=== PATIENT | female | born 1990 | race Two or more races ===

== ENCOUNTER 2018-11-14 16:37 | Emergency (ER) | payer BC ==
[~2018-11-14 16:37] MED LIST: ISOVUE-370 76%-LOCM 1 ML ONE
[2018-11-14 17:16] LABS: Pregnancy Test - Urine (BHCG) Negative (Negative); Pregu Control Background? CLEAR/WHITE (CLR/WHITE); Pregu Control Bar Appear? YES (CONTROL BAR)
[2018-11-14 17:27] LABS: #Eosinphils 0.1 thou/uL (0.0-0.7); #Lymphocytes 1.6 thou/uL (1.20-3.40); #Monocytes 0.3 thou/uL (0.11-0.59); #Neutrophils 3.7 thou/uL (1.40-6.50); %Basophils 0.8 % (0.0-1.0); %Eosinophils 1.3 % (0.0-10.0); %Lymphocytes 28.1 % (21.0-51.0); %Monocytes 5.8 % (0.0-10.0); Hemoglobin 13.1 g/dL (12.0-16.0); Mean Corpuscular Hemoglobin 27.7 pg (27.0-31.0); Mean Corpuscular Volume 86.8 fL (78.0-98.0); Mean Platelet Volume 7.5 fL (7.4-10.4); Platelet Count 292 thou/uL (130-400); Red Blood Cell (RBC) Count 4.71 mill/uL (4.20-5.40); White Blood Cell (WBC) Count 5.7 thou/uL (4.8-10.8)
[2018-11-14 17:45] LABS: ALT (SGPT) 11 U/L (8-55); AST (SGOT) 15 U/L (5-34); Albumin 4.6 g/dL (3.5-5.0); Alkaline Phosphatase 74 U/L (40-150); Anion Gap 12 mmol/L (10-20); BUN (Urea Nitrogen) 8 mg/dL (7.0-18.7); Bilirubin, Total 0.2 mg/dL (0.2-1.2); Calc. Creatinine Clearance 0 mL/min (70-130); Calcium 9.7 mg/dL (7.8-10.44); Carbon Dioxide 25 mmol/L (22-29); Chloride 105 mmol/L (98-107); Estimated GFR-MDRD Greater than 90; Globulin 3.2 g/dL (2.4-3.5); Glucose 97 mg/dL (70-105); Lipase 25 U/L (8-78); Protein, Total 7.8 g/dL (6.0-8.3); Sodium 138 mmol/L (136-145)
[2018-11-14 17:49] LABS: Bilirubin Negative (Negative); Blood, Urine Negative (Negative); Clarity CLEAR (Clear); Glucose, Urine (Dipstick) Negative (Negative); Leukocyte Negative (Negative); Nitrite Negative (Negative); Protein, Urine (Dipstick) Negative (Neg-Trace); Specific Gravity, Urine 1.009 (1.002-1.036); Urobilinogen 0.2 mg/dL (0.2-1.0); pH, Urine 7.5 (5.0-9.0)
--- NOTE | 2018-11-14 18:27 | RAD ---
ABDOMEN TWO VIEW: 11/14/18 HISTORY: Abdominal pain. Nausea and vomiting. COMPARISON: None. FINDINGS: There are no dilated air filled loops of large or small bowel. No free air under the hemidiaphragms o n this upright view. No abnormal calcification projecting over the renal shadows. 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 Small left pelvic phlebolith. IMPRESSION: No evidence for small bowel obstruction. POS: HOME
[2018-11-14] MEDS ORDERED: Ondansetron PF 4 MG/2 ML Vial ONE (20:38)
[2018-11-14] MEDS ORDERED: Morphine 4 MG/ML VIAL ONE (20:38)
[2018-11-14] MEDS ORDERED: Glycopyrrolate 0.2 MG/ML 5 ML SYRINGE SLOW IVP SCH (20:45)
--- NOTE | 2018-11-14 21:35 | CT ---
CT ABDOMEN AND PELVIS WITH CONTRAST 11/14/18 HISTORY: Evaluate for small bowel obstruction. Abdominal pain. Constipation. COMPARISON: None. FINDINGS: Lung bases are clear. No pericardial effusion. The spleen, pancreas, and adrenal glands are normal. Liver is unremarkable. The aortoiliac contour is nonaneurysmal. No retroperitoneal adenopathy. There are no dilated loops of large or small bowel. The appendix is visualized and is normal. No free intraperitoneal gas or fluid. No hydronephrosis. No abnormal renal enhancing mass. No retrope ritoneal adenopathy. No acute osseous abnormality. 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 IMPRESSION: No acute abnormality in the abdomen or pelvis. POS: HOME
[2018-11-14] MEDS ORDERED: diphenhydrAMINE 50 MG/ML VIAL ONE (22:02)
== END 2018-11-14 22:39 | disposition home or self-care (01) ==
LOC: ERS 16:37
DX: R10.9 Unspecified abdominal pain (principal); Z79.899 Other long term (current) drug therapy
CPT/HCPCS: 36415; 74019; 74177; 80053; 81003; 81025; 83690; 85025; 96361; 96374; 96375; J1200; J2270; J2405; Q9966

== ENCOUNTER 2018-11-17 10:26 | Outpatient (CLI) | payer BC ==
--- NOTE | 2018-11-17 12:13 | RAD ---
ABDOMEN 1 VIEW: Date: 11/17/18 HISTORY: Constipation, nausea, and vomiting. Sitz marker study day 1. COMPARISON: None. FINDINGS: Moderate stool burden within the rectum. No radiopaque markers are appreciated on this examination. Moderate stool burden in the colon. IMPRESSION: No radiopaque markers are appreciated. Moderate stool burden. POS: [facility]
== END 2018-11-17 10:27 | disposition home or self-care (01) ==
LOC: BICRAD 10:26
PROVIDERS: ATTEND Physician Assistant Medical
DX: K59.00 Constipation, unspecified (principal); R11.2 Nausea with vomiting, unspecified
CPT/HCPCS: 74018

== ENCOUNTER 2018-11-22 13:23 | Outpatient (CLI) | payer BC ==
--- NOTE | 2018-11-22 14:19 | RAD ---
KUB: Date: 11-22-18 Provided Clinical History: Constipation. Sitz cora study. FINDINGS: Correlation is made with the study dated 11-17-18. The abdominal bowel gas pattern is nonspecific. 20 Sitz markers remain scattered throughout the expec janis distribution of the colon. The ossoues structures appear unremarkable. IMPRESSION: 20 Sitz markers remain. POS: [facility]
== END 2018-11-22 13:24 | disposition home or self-care (01) ==
LOC: BICRAD 13:23
PROVIDERS: ATTEND Internal Medicine Gastroenterology
DX: K59.00 Constipation, unspecified (principal); R11.2 Nausea with vomiting, unspecified
CPT/HCPCS: 74018

== ENCOUNTER 2018-11-29 10:31 | Outpatient (CLI) | payer BC ==
--- NOTE | 2018-11-29 11:33 | RAD ---
SUPINE ABDOMEN: Indications: Sitz marker transit study. Comparison: 11-22-18 FINDINGS/IMPRESSION: Three sitz markers overlie the region of the cecum. One sitz marker is seen at the level of the hepat ic flexure. The other sitz markers are distributed throughout the left colon from the splenic flexure to the level of the mid sigmoid. POS: [facility]
== END 2018-11-29 10:32 | disposition home or self-care (01) ==
LOC: BICRAD 10:31
PROVIDERS: ATTEND Internal Medicine Gastroenterology
DX: K59.01 Slow transit constipation (principal); R11.2 Nausea with vomiting, unspecified
CPT/HCPCS: 74018

== ENCOUNTER 2022-04-03 18:42 | Emergency (ER) | payer BC ==
[~2022-04-03 18:42] MED LIST changes: -ISOVUE-370 76%-LOCM 1 ML ONE; +Iopamidol-370 76% 500 ML 1 ML ONE
[2022-04-03] MEDS ORDERED: Fentanyl 100 MCG/2 ML VIAL ONE (18:53)
[2022-04-03] MEDS ORDERED: Ondansetron PF 4 MG/2 ML Vial ONE (19:06)
[2022-04-03 19:17] LABS: #Lymphocytes 0.8 thou/uL (1.20-3.40); #Monocytes 0.6 thou/uL (0.11-0.59); #Neutrophils 14.4 thou/uL (1.40-6.50); %Monocytes 3.5 % (0.0-10.0); %Neutrophils 91.4 % (42.0-75.0); Hemoglobin 9.2 g/dL (12.0-16.0); Mean Corpuscular HGB CONC 31.6 g/dL (32.0-36.0); Mean Corpuscular Hemoglobin 25.5 pg (27.0-31.0); Mean Corpuscular Volume 80.8 fL (78.0-98.0); Mean Platelet Volume 7.8 fL (7.4-10.4); Platelet Count 327 thou/uL (130-400); Red Blood Cell (RBC) Count 3.58 mill/uL (4.20-5.40); White Blood Cell (WBC) Count 15.7 thou/uL (4.8-10.8)
[2022-04-03 19:20] LABS: BHCG - Serum Negative (NEGATIVE); Pregs Control Background? CLEAR/WHITE (CLR/WHITE); Pregs Control Bar Appear? YES (CONTROL BAR)
[2022-04-03 19:37] LABS: ALT (SGPT) 12 U/L (8-55); AST (SGOT) 17 U/L (5-34); Albumin 4.2 g/dL (3.5-5.0); Alkaline Phosphatase 53 U/L (40-110); Anion Gap 14 mmol/L (10-20); BUN (Urea Nitrogen) 8 mg/dL (7.0-18.7); Bilirubin, Total 0.2 mg/dL (0.2-1.2); Calc. Creatinine Clearance 0 mL/min (70-130); Calcium 9.5 mg/dL (7.8-10.44); Carbon Dioxide 22 mmol/L (22-29); Chloride 108 mmol/L (98-107); Estimated GFR 107; Globulin 3.6 g/dL (2.4-3.5); Glucose 99 mg/dL (70-105); Lipase 12 U/L (8-78); Potassium 3.9 mmol/L (3.5-5.1); Protein, Total 7.8 g/dL (6.0-8.3); Sodium 140 mmol/L (136-145)
[2022-04-03 20:07] LABS: Bilirubin Negative (Negative); Blood, Urine Negative (Negative); Clarity Clear (Clear); Glucose, Urine (Dipstick) Normal (Negative); Ketone, Urine Negative (Negative); Leukocyte Negative Leu/uL (Negative); Nitrite Negative (Negative); Protein, Urine (Dipstick) Negative (Neg-Trace); Specific Gravity, Urine 1.008 (1.002-1.036); Urobilinogen Normal mg/dL (Less than 2); pH, Urine 5.5 (5.0-9.0)
[2022-04-03] MEDS ORDERED: Piperacillin/Tazobactam 4.5 GM in Sodium Chloride 0.9% 100 ML IVPB SCH (21:00)
[2022-04-03] MEDS ORDERED: Piperacillin/Tazobactam 4.5 GM VIAL ONE (21:03)
[2022-04-03] MEDS ORDERED: HYDROmorphone 0.5 MG/0.5 ML SYRINGE ONE (22:06)
== END 2022-04-03 23:19 | disposition short-term general hospital (02) ==
LOC: ERS 18:42
DX: T81.44XA Sepsis following a procedure, initial encounter (principal); Z90.49 Acquired absence of other specified parts of digestive tract
CPT/HCPCS: 36415; 74177; 80053; 81003; 83690; 84484; 84703; 85025; 87040; 87086; 93005; 96361; 96365; 96375; 96376; J1170; J2405; J2543; J3010; J3490; Q9967

== ENCOUNTER 2022-04-27 14:52 | Emergency (ER) | payer BC ==
[~2022-04-27 14:52] MED LIST changes: +GASTROGRAFIN 30 ML BOT ONE; +Iopamidol 370 76% 100 ML VIAL ONE; -Iopamidol-370 76% 500 ML 1 ML ONE
[2022-04-27] MEDS ORDERED: Ondansetron PF 4 MG/2 ML Vial ONE ×2 (16:01→18:05)
[2022-04-27] MEDS ORDERED: Fentanyl 100 MCG/2 ML VIAL ONE ×2 (16:01→18:05)
[2022-04-27 16:09] LABS: #Eosinphils 0.3 thou/uL (0.0-0.7); #Lymphocytes 2.5 thou/uL (1.20-3.40); #Monocytes 0.4 thou/uL (0.11-0.59); #Neutrophils 2.4 thou/uL (1.40-6.50); %Basophils 0.1 % (0.0-1.0); %Eosinophils 4.6 % (0.0-10.0); %Lymphocytes 45.2 % (21.0-51.0); %Monocytes 7.1 % (0.0-10.0); Hemoglobin 10.9 g/dL (12.0-16.0); Mean Corpuscular HGB CONC 31.9 g/dL (32.0-36.0); Mean Corpuscular Hemoglobin 24.7 pg (27.0-31.0); Mean Corpuscular Volume 77.4 fL (78.0-98.0); Mean Platelet Volume 8.2 fL (7.4-10.4); Platelet Count 287 thou/uL (130-400); Red Blood Cell (RBC) Count 4.42 mill/uL (4.20-5.40); White Blood Cell (WBC) Count 5.5 thou/uL (4.8-10.8)
[2022-04-27 16:09] LABS: Bilirubin Negative (Negative); Blood, Urine Negative (Negative); Clarity Clear (Clear); Glucose, Urine (Dipstick) Normal (Negative); Ketone, Urine Negative (Negative); Leukocyte Negative Leu/uL (Negative); Nitrite Negative (Negative); Protein, Urine (Dipstick) Negative (Neg-Trace); Specific Gravity, Urine 1.004 (1.002-1.036); Urobilinogen Normal mg/dL (Less than 2); pH, Urine 6.5 (5.0-9.0)
[2022-04-27 16:12] LABS: Pregnancy Test - Urine (BHCG) Negative (Negative); Pregu Control Background? CLEAR/WHITE (CLR/WHITE); Pregu Control Bar Appear? YES (CONTROL BAR); Specific Gravity 1.004 (1.002-1.036)
[2022-04-27 16:35] LABS: ALT (SGPT) 13 U/L (8-55); AST (SGOT) 21 U/L (5-34); Albumin 4.3 g/dL (3.5-5.0); Alkaline Phosphatase 71 U/L (40-110); Anion Gap 14 mmol/L (10-20); BUN (Urea Nitrogen) 10 mg/dL (7.0-18.7); Bilirubin, Total 0.2 mg/dL (0.2-1.2); Calc. Creatinine Clearance 0 mL/min (70-130); Calcium 9.6 mg/dL (7.8-10.44); Carbon Dioxide 22 mmol/L (22-29); Chloride 106 mmol/L (98-107); Estimated GFR 95; Globulin 3.6 g/dL (2.4-3.5); Glucose 90 mg/dL (70-105); Lipase 36 U/L (8-78); Potassium 4.9 mmol/L (3.5-5.1); Protein, Total 7.9 g/dL (6.0-8.3); Sodium 137 mmol/L (136-145)
== END 2022-04-27 18:52 | disposition home or self-care (01) ==
LOC: ERS 14:52
DX: R10.30 Lower abdominal pain, unspecified (principal)
CPT/HCPCS: 36415; 74177; 80053; 81003; 81025; 83690; 85025; 96361; 96374; 96375; 96376; J2405; J3010; Q9963; Q9967

== ENCOUNTER 2022-05-11 16:46 | Inpatient (IN) | payer BC ==
[~2022-05-11 16:46] MED LIST changes: -GASTROGRAFIN 30 ML BOT ONE; -Iopamidol 370 76% 100 ML VIAL ONE; +Iopamidol-370 76% 500 ML 1 ML ONE
[2022-05-11] MEDS ORDERED: Ondansetron PF 4 MG/2 ML Vial ONE (18:10)
[2022-05-11] MEDS ORDERED: HYDROmorphone 0.5 MG/0.5 ML SYRINGE ONE ×2 (18:11→20:14)
[2022-05-11 18:20] LABS: #Eosinphils 0.1 thou/uL (0.0-0.7); #Lymphocytes 2.2 thou/uL (1.20-3.40); #Monocytes 0.4 thou/uL (0.11-0.59); #Neutrophils 3.7 thou/uL (1.40-6.50); %Basophils 0.3 % (0.0-1.0); %Eosinophils 0.8 % (0.0-10.0); %Lymphocytes 34.9 % (21.0-51.0); %Monocytes 5.6 % (0.0-10.0); %Neutrophils 58.4 % (42.0-75.0); Hemoglobin 10.5 g/dL (12.0-16.0); Mean Corpuscular HGB CONC 33.2 g/dL (32.0-36.0); Mean Corpuscular Hemoglobin 25.9 pg (27.0-31.0); Mean Corpuscular Volume 77.9 fL (78.0-98.0); Mean Platelet Volume 8.6 fL (7.4-10.4); Platelet Count 201 thou/uL (130-400); RBC Distribution Width 16.4 % (11.5-14.5); Red Blood Cell (RBC) Count 4.07 mill/uL (4.20-5.40); White Blood Cell (WBC) Count 6.4 thou/uL (4.8-10.8)
[2022-05-11 18:27] LABS: BHCG - Serum Negative (NEGATIVE); Pregs Control Background? CLEAR/WHITE (CLR/WHITE); Pregs Control Bar Appear? YES (CONTROL BAR)
[2022-05-11 18:43] LABS: ALT (SGPT) 13 U/L (8-55); AST (SGOT) 19 U/L (5-34); Albumin 4.5 g/dL (3.5-5.0); Alkaline Phosphatase 55 U/L (40-110); Anion Gap 15 mmol/L (10-20); BUN (Urea Nitrogen) 13 mg/dL (7.0-18.7); Bilirubin, Total 0.3 mg/dL (0.2-1.2); Calc. Creatinine Clearance 0 mL/min (70-130); Carbon Dioxide 22 mmol/L (22-29); Chloride 106 mmol/L (98-107); Estimated GFR 95; Globulin 3.3 g/dL (2.4-3.5); Glucose 86 mg/dL (70-105); Lipase 40 U/L (8-78); Magnesium 2.1 mg/dL (1.6-2.6); Potassium 4.1 mmol/L (3.5-5.1); Protein, Total 7.8 g/dL (6.0-8.3); Sodium 139 mmol/L (136-145)
[2022-05-11 18:55] LABS: Bilirubin Negative (Negative); Blood, Urine Negative (Negative); Clarity Clear (Clear); Glucose, Urine (Dipstick) Normal (Negative); Ketone, Urine Negative (Negative); Leukocyte Negative Leu/uL (Negative); Nitrite Negative (Negative); Protein, Urine (Dipstick) Negative (Neg-Trace); Specific Gravity, Urine 1.011 (1.002-1.036); Urobilinogen Normal mg/dL (Less than 2)
[2022-05-11 18:58] LABS: Pregnancy Test - Urine (BHCG) Negative (Negative); Pregu Control Background? CLEAR/WHITE (CLR/WHITE); Pregu Control Bar Appear? YES (CONTROL BAR); Specific Gravity 1.011 (1.002-1.036)
[2022-05-11 22:54] VITALS: BMI 26.6
[2022-05-11 23:04] LABS: Troponin I Less than 0.010 ng/mL (< 0.028)
[2022-05-11] MEDS ORDERED: Acetaminophen 650 MG Suppository PR PRN (23:45)
[2022-05-11] MEDS ORDERED: Ondansetron ODT 4 MG TAB PO PRN (23:45)
[2022-05-11] MEDS ORDERED: Acetaminophen 325 MG TAB PO PRN (23:45)
[2022-05-11] MEDS ORDERED: HYDROmorphone 0.5 MG/0.5 ML SYRINGE SLOW IVP SCH (23:59)
[2022-05-12] MEDS: Ondansetron PF 4 MG/2 ML Vial IVP PRN ×3 (00:32→18:14)
[2022-05-12 02:45] LABS: #Eosinphils 0.1 thou/uL (0.0-0.7); #Lymphocytes 2.4 thou/uL (1.20-3.40); #Monocytes 0.4 thou/uL (0.11-0.59); #Neutrophils 2.5 thou/uL (1.40-6.50); %Basophils 0.4 % (0.0-1.0); %Eosinophils 2.4 % (0.0-10.0); %Monocytes 6.6 % (0.0-10.0); %Neutrophils 45.6 % (42.0-75.0); Hemoglobin 9.2 g/dL (12.0-16.0); Mean Corpuscular HGB CONC 34.2 g/dL (32.0-36.0); Mean Corpuscular Hemoglobin 26.9 pg (27.0-31.0); Mean Corpuscular Volume 78.5 fL (78.0-98.0); Mean Platelet Volume 7.9 fL (7.4-10.4); Platelet Count 173 thou/uL (130-400); RBC Distribution Width 16.4 % (11.5-14.5); Red Blood Cell (RBC) Count 3.43 mill/uL (4.20-5.40); White Blood Cell (WBC) Count 5.4 thou/uL (4.8-10.8)
[2022-05-12 03:09] LABS: Troponin I Less than 0.010 ng/mL (< 0.028)
[2022-05-12 03:25] LABS: Anion Gap 14 mmol/L (10-20); BUN (Urea Nitrogen) 8 mg/dL (7.0-18.7); Calc. Creatinine Clearance 124 mL/min (70-130); Calcium 8.4 mg/dL (7.8-10.44); Carbon Dioxide 21 mmol/L (22-29); Chloride 109 mmol/L (98-107); Estimated GFR 118; Glucose 105 mg/dL (70-105); Potassium 3.7 mmol/L (3.5-5.1); Sodium 140 mmol/L (136-145)
[2022-05-12] MEDS: Sodium Chloride 0.9% 1,000 ML IV SCH ×2 (06:25→16:51)
[2022-05-12] MEDS ORDERED: Fentanyl 100 MCG/2 ML VIAL SLOW IVP PRN ×2 (06:30→10:28)
[2022-05-12] MEDS ORDERED: oxyCODONE 5 MG TAB PO PRN (08:53)
[2022-05-12] MEDS ORDERED: Dicyclomine 10 MG CAP PO PRN (08:54)
[2022-05-12] MEDS ORDERED: Promethazine 25 MG TAB PO PRN (09:24)
[2022-05-12] MEDS ORDERED: Naloxone HCl 0.4 mg/ml Vial IV PRN (10:29)
[2022-05-12] MEDS: Hydroxychloroquine Sulfate 200 MG TAB PO SCH (10:44)
[2022-05-12] MEDS: Naproxen 500 MG TAB PO SCH ×2 (10:44→20:11)
[2022-05-12] MEDS: Fentanyl 100 MCG/2 ML VIAL SLOW IVP PRN (13:47)
[2022-05-12] MEDS: HYDROmorphone 0.5 MG/0.5 ML SYRINGE SLOW IVP PRN ×2 (15:47→22:00)
[2022-05-12] MEDS: Amitriptyline HCl 25 MG TAB PO SCH (20:12)
[2022-05-12] MEDS: Rizatriptan Benzoate 10 MG MLT TAB PO SCH (20:12)
[2022-05-12] MEDS: Melatonin 3 MG TAB PO SCH (20:12)
[2022-05-12] MEDS: traZODone HCl 50 MG TAB PO SCH (20:12)
[2022-05-13] MEDS: Sodium Chloride 0.9% 1,000 ML IV SCH ×3 (03:20→23:36)
[2022-05-13 05:06] LABS: #Eosinphils 0.3 thou/uL (0.0-0.7); #Lymphocytes 2.3 thou/uL (1.20-3.40); #Monocytes 0.4 thou/uL (0.11-0.59); #Neutrophils 2.5 thou/uL (1.40-6.50); %Basophils 0.5 % (0.0-1.0); %Eosinophils 6.2 % (0.0-10.0); %Lymphocytes 41.1 % (21.0-51.0); %Monocytes 6.8 % (0.0-10.0); %Neutrophils 45.4 % (42.0-75.0); Hemoglobin 9.2 g/dL (12.0-16.0); Mean Corpuscular HGB CONC 32.9 g/dL (32.0-36.0); Mean Corpuscular Hemoglobin 26.1 pg (27.0-31.0); Mean Corpuscular Volume 79.2 fL (78.0-98.0); Mean Platelet Volume 8.2 fL (7.4-10.4); Platelet Count 195 thou/uL (130-400); RBC Distribution Width 16.3 % (11.5-14.5); Red Blood Cell (RBC) Count 3.51 mill/uL (4.20-5.40); White Blood Cell (WBC) Count 5.5 thou/uL (4.8-10.8)
[2022-05-13 05:29] LABS: ALT (SGPT) 10 U/L (8-55); AST (SGOT) 15 U/L (5-34); Albumin 3.5 g/dL (3.5-5.0); Alkaline Phosphatase 43 U/L (40-110); Anion Gap 12 mmol/L (10-20); BUN (Urea Nitrogen) 10 mg/dL (7.0-18.7); Bilirubin, Total 0.2 mg/dL (0.2-1.2); CRP (Inflammatory) Less than 0.50 mg/dL (= or < 0.5); Calc. Creatinine Clearance 125 mL/min (70-130); Calcium 8.6 mg/dL (7.8-10.44); Carbon Dioxide 19 mmol/L (22-29); Chloride 111 mmol/L (98-107); Estimated GFR 118; Globulin 2.5 g/dL (2.4-3.5); Glucose 97 mg/dL (70-105); Potassium 3.9 mmol/L (3.5-5.1); Sodium 138 mmol/L (136-145)
[2022-05-13] MEDS: HYDROmorphone 0.5 MG/0.5 ML SYRINGE SLOW IVP PRN ×4 (08:28→21:25)
[2022-05-13] MEDS: Multivit, Therapeutic 1 TAB PO SCH (08:30)
[2022-05-13] MEDS: Naproxen 500 MG TAB PO SCH ×2 (08:30→20:48)
[2022-05-13] MEDS: Hydroxychloroquine Sulfate 200 MG TAB PO SCH (08:30)
[2022-05-13] MEDS: Fentanyl 100 MCG/2 ML VIAL SLOW IVP PRN ×3 (10:51→23:37)
[2022-05-13] MEDS ORDERED: Iopamidol-370 76% 500 ML 1 ML ONE (14:31)
[2022-05-13] MEDS ORDERED: Polyethylene Glycol 3350 17 GM Packet PO SCH (18:30)
[2022-05-13] MEDS ORDERED: Nitroglycerin 2% Ointment 1 INCH/1 GM Packet ONE (18:41)
[2022-05-13] MEDS: Melatonin 3 MG TAB PO SCH (20:47)
[2022-05-13] MEDS: Amitriptyline HCl 25 MG TAB PO SCH (20:47)
[2022-05-13] MEDS: traZODone HCl 50 MG TAB PO SCH (20:47)
[2022-05-13] MEDS: Rizatriptan Benzoate 10 MG MLT TAB PO SCH (20:48)
[2022-05-13] MEDS: Ondansetron PF 4 MG/2 ML Vial IVP PRN (21:53)
[2022-05-14 05:22] LABS: Complement-C4 23.2 mg/dL (15-57)
[2022-05-14] MEDS: HYDROmorphone 0.5 MG/0.5 ML SYRINGE SLOW IVP PRN ×4 (05:54→20:53)
[2022-05-14] MEDS: Ondansetron PF 4 MG/2 ML Vial IVP PRN (06:33)
[2022-05-14] MEDS: Sodium Chloride 0.9% 1,000 ML IV SCH ×2 (08:00→16:23)
[2022-05-14 08:45] LABS: Anion Gap 11 mmol/L (10-20); BUN (Urea Nitrogen) 9 mg/dL (7.0-18.7); Calc. Creatinine Clearance 124 mL/min (70-130); Calcium 8.5 mg/dL (7.8-10.44); Carbon Dioxide 22 mmol/L (22-29); Chloride 109 mmol/L (98-107); Estimated GFR 118; Glucose 86 mg/dL (70-105); Potassium 3.8 mmol/L (3.5-5.1); Sodium 138 mmol/L (136-145)
[2022-05-14 09:24] LABS: #Eosinphils 0.3 thou/uL (0.0-0.7); #Monocytes 0.4 thou/uL (0.11-0.59); #Neutrophils 2.1 thou/uL (1.40-6.50); %Basophils 0.2 % (0.0-1.0); %Eosinophils 7.2 % (0.0-10.0); %Lymphocytes 41.6 % (21.0-51.0); %Monocytes 7.3 % (0.0-10.0); %Neutrophils 43.7 % (42.0-75.0); Hemoglobin 9.1 g/dL (12.0-16.0); Mean Corpuscular HGB CONC 32.7 g/dL (32.0-36.0); Mean Corpuscular Hemoglobin 25.9 pg (27.0-31.0); Mean Corpuscular Volume 79.3 fL (78.0-98.0); Mean Platelet Volume 8.4 fL (7.4-10.4); Platelet Count 208 thou/uL (130-400); RBC Distribution Width 16.4 % (11.5-14.5); Red Blood Cell (RBC) Count 3.52 mill/uL (4.20-5.40); White Blood Cell (WBC) Count 4.7 thou/uL (4.8-10.8)
[2022-05-14] MEDS ORDERED: Fentanyl 100 MCG/2 ML VIAL ONE (09:54)
[2022-05-14] MEDS ORDERED: PROPOFOL 200 MG/20 ML VIAL ONE (10:00)
[2022-05-14] MEDS: Naproxen 500 MG TAB PO SCH (11:22)
[2022-05-14] MEDS: Multivit, Therapeutic 1 TAB PO SCH (11:47)
[2022-05-14] MEDS: Hydroxychloroquine Sulfate 200 MG TAB PO SCH ×2 (11:58→13:45)
[2022-05-14] MEDS: Fentanyl 100 MCG/2 ML VIAL SLOW IVP PRN ×3 (13:48→22:16)
[2022-05-14] MEDS: Melatonin 3 MG TAB PO SCH (20:55)
[2022-05-14] MEDS: traZODone HCl 50 MG TAB PO SCH (20:55)
[2022-05-14] MEDS: Rizatriptan Benzoate 10 MG MLT TAB PO SCH (20:55)
[2022-05-14] MEDS: Amitriptyline HCl 25 MG TAB PO SCH (20:55)
[2022-05-15] MEDS: HYDROmorphone 0.5 MG/0.5 ML SYRINGE SLOW IVP PRN ×4 (00:51→21:15)
[2022-05-15] MEDS: Sodium Chloride 0.9% 1,000 ML IV SCH ×3 (04:29→23:31)
[2022-05-15] MEDS: Fentanyl 100 MCG/2 ML VIAL SLOW IVP PRN ×4 (04:29→23:34)
[2022-05-15 05:26] LABS: #Basophils 0.1 thou/uL (0.0-0.2); #Eosinphils 0.3 thou/uL (0.0-0.7); #Lymphocytes 2.1 thou/uL (1.20-3.40); #Monocytes 0.4 thou/uL (0.11-0.59); %Basophils 1.1 % (0.0-1.0); %Eosinophils 5.8 % (0.0-10.0); %Lymphocytes 42.8 % (21.0-51.0); %Monocytes 8.3 % (0.0-10.0); %Neutrophils 42.1 % (42.0-75.0); Hemoglobin 8.7 g/dL (12.0-16.0); Mean Corpuscular HGB CONC 32.5 g/dL (32.0-36.0); Mean Corpuscular Hemoglobin 25.7 pg (27.0-31.0); Mean Corpuscular Volume 79.2 fL (78.0-98.0); Mean Platelet Volume 7.9 fL (7.4-10.4); Platelet Count 214 thou/uL (130-400); RBC Distribution Width 16.5 % (11.5-14.5); Red Blood Cell (RBC) Count 3.38 mill/uL (4.20-5.40); White Blood Cell (WBC) Count 4.8 thou/uL (4.8-10.8)
[2022-05-15 05:48] LABS: Anion Gap 13 mmol/L (10-20); BUN (Urea Nitrogen) 8 mg/dL (7.0-18.7); Calc. Creatinine Clearance 131 mL/min (70-130); Calcium 8.4 mg/dL (7.8-10.44); Carbon Dioxide 19 mmol/L (22-29); Chloride 110 mmol/L (98-107); Estimated GFR 119; Glucose 95 mg/dL (70-105); Potassium 3.6 mmol/L (3.5-5.1); Sodium 138 mmol/L (136-145)
[2022-05-15] MEDS: Multivit, Therapeutic 1 TAB PO SCH (07:56)
[2022-05-15] MEDS ORDERED: Hydroxychloroquine Sulfate 200 MG TAB PO SCH (09:00)
[2022-05-15] MEDS: Ondansetron PF 4 MG/2 ML Vial IVP PRN (09:00)
[2022-05-15] MEDS: Amitriptyline HCl 25 MG TAB PO SCH (20:56)
[2022-05-15] MEDS: Melatonin 3 MG TAB PO SCH (20:56)
[2022-05-15] MEDS: traZODone HCl 50 MG TAB PO SCH (20:56)
[2022-05-15] MEDS: Rizatriptan Benzoate 10 MG MLT TAB PO SCH (21:15)
[2022-05-16] MEDS: HYDROmorphone 2 MG TAB PO PRN ×2 (01:15→05:12)
[2022-05-16] MEDS: Fentanyl 100 MCG/2 ML VIAL SLOW IVP PRN ×2 (03:35→08:19)
[2022-05-16 06:57] LABS: #Eosinphils 0.2 thou/uL (0.0-0.7); #Lymphocytes 2.2 thou/uL (1.20-3.40); #Monocytes 0.5 thou/uL (0.11-0.59); #Neutrophils 2.4 thou/uL (1.40-6.50); %Basophils 0.3 % (0.0-1.0); %Eosinophils 4.6 % (0.0-10.0); %Lymphocytes 40.9 % (21.0-51.0); %Monocytes 8.9 % (0.0-10.0); %Neutrophils 45.3 % (42.0-75.0); Hemoglobin 9.7 g/dL (12.0-16.0); Mean Corpuscular HGB CONC 32.1 g/dL (32.0-36.0); Mean Corpuscular Hemoglobin 25.7 pg (27.0-31.0); Mean Platelet Volume 8.1 fL (7.4-10.4); Platelet Count 242 thou/uL (130-400); RBC Distribution Width 16.8 % (11.5-14.5); Red Blood Cell (RBC) Count 3.78 mill/uL (4.20-5.40); White Blood Cell (WBC) Count 5.4 thou/uL (4.8-10.8)
[2022-05-16 07:18] LABS: Anion Gap 13 mmol/L (10-20); BUN (Urea Nitrogen) 10 mg/dL (7.0-18.7); Calc. Creatinine Clearance 120 mL/min (70-130); Calcium 8.9 mg/dL (7.8-10.44); Carbon Dioxide 21 mmol/L (22-29); Chloride 108 mmol/L (98-107); Estimated GFR 114; Glucose 104 mg/dL (70-105); Potassium 3.9 mmol/L (3.5-5.1); Sodium 138 mmol/L (136-145)
[2022-05-16] MEDS: Multivit, Therapeutic 1 TAB PO SCH (08:20)
[2022-05-16] MEDS ORDERED: Hydroxychloroquine Sulfate 200 MG TAB PO SCH (09:00)
[2022-05-16 11:51] VITALS: BP 105/63; TEMP 98.6
[2022-05-16] MEDS: Sodium Chloride 0.9% 1,000 ML IV SCH (12:10)
== END 2022-05-16 12:21 | disposition home or self-care (01) | DRG 394 ==
LOC: ERS 16:46 → 2SW 20:56 → OBSVTOIN 05-13 16:38 → T4-B 05-15 15:00
PROVIDERS: ADMIT Internal Medicine; ATTEND Internal Medicine
PROC: 0DJ08ZZ Inspection of Upper Intestinal Tract, Via Natural or Artificial Opening Endoscopic (ICD-10-PCS; principal; 2022-05-14)
PROC: 0DJD8ZZ Inspection of Lower Intestinal Tract, Via Natural or Artificial Opening Endoscopic (ICD-10-PCS; 2022-05-14)
DX: K94.11 Enterostomy hemorrhage (principal); K63.3 Ulcer of intestine; Z20.822 Contact with and (suspected) exposure to COVID-19; M06.9 Rheumatoid arthritis, unspecified; M35.00 Sjogren syndrome, unspecified; M32.9 Systemic lupus erythematosus, unspecified; G89.29 Other chronic pain; E86.0 Dehydration; F03.90 Unspecified dementia, unspecified severity, without behavioral disturbance, psychotic disturbance, mood disturbance, and anxiety; R55 Syncope and collapse; Y83.3 Surgical operation with formation of external stoma as the cause of abnormal reaction of the patient, or of later complication, without mention of misadventure at the time of the procedure; Z88.4 Allergy status to anesthetic agent; Z88.5 Allergy status to narcotic agent; Z90.49 Acquired absence of other specified parts of digestive tract; Z79.899 Other long term (current) drug therapy; M34.9 Systemic sclerosis, unspecified; R07.9 Chest pain, unspecified
CPT/HCPCS: 36415; 70450; 71045; 71275; 74177; 80048; 80053; 81003; 81025; 83605; 83690; 83735; 83880; 84484; 84703; 85025; 86140; 86160; 87040; 87086; 93005; 96361; 96374; 96375; 96376; G0378; J1170; J2405; J2704; J3010; J7050; Q9967; U0003; U0005

== ENCOUNTER 2022-09-13 11:48 | Emergency (ER) | payer BC ==
[2022-09-13 12:42] LABS: #Basophils 0.1 thou/uL (0.0-0.2); #Eosinphils 0.1 thou/uL (0.0-0.7); #Lymphocytes 1.9 thou/uL (1.20-3.40); #Monocytes 0.3 thou/uL (0.11-0.59); #Neutrophils 2.9 thou/uL (1.40-6.50); %Basophils 1.4 % (0.0-1.0); %Lymphocytes 35.7 % (21.0-51.0); %Monocytes 6.4 % (0.0-10.0); %Neutrophils 55.6 % (42.0-75.0); Hemoglobin 13.5 g/dL (12.0-16.0); Mean Corpuscular HGB CONC 33.9 g/dL (32.0-36.0); Mean Corpuscular Hemoglobin 29.1 pg (27.0-31.0); Mean Corpuscular Volume 85.7 fl (78.0-98.0); Mean Platelet Volume 7.3 fL (7.4-10.4); Platelet Count 263 10x3/uL (130-400); RBC Distribution Width 12.7 % (11.5-14.5); Red Blood Cell (RBC) Count 4.66 mill/uL (4.20-5.40); White Blood Cell (WBC) Count 5.3 10x3/uL (4.8-10.8)
[2022-09-13 12:51] LABS: BHCG - Serum Negative (NEGATIVE); Pregs Control Background? CLEAR/WHITE (CLR/WHITE); Pregs Control Bar Appear? YES (CONTROL BAR)
[2022-09-13 13:03] LABS: ALT (SGPT) 16 U/L (8-55); AST (SGOT) 20 U/L (5-34); Albumin 4.7 g/dL (3.5-5.0); Alkaline Phosphatase 59 U/L (40-110); Anion Gap 14 mmol/L (10-20); BUN (Urea Nitrogen) 9 mg/dL (7.0-18.7); Bilirubin, Total 0.4 mg/dL (0.2-1.2); Calc. Creatinine Clearance 0 mL/min (70-130); Calcium 9.9 mg/dL (7.8-10.44); Carbon Dioxide 22 mmol/L (22-29); Chloride 106 mmol/L (98-107); Estimated GFR 97; Globulin 3.4 g/dL (2.4-3.5); Glucose 88 mg/dL (70-105); Lipase 36 U/L (8-78); Potassium 4.6 mmol/L (3.5-5.1); Protein, Total 8.1 g/dL (6.0-8.3); Sodium 137 mmol/L (136-145)
[2022-09-13 13:36] LABS: Bilirubin Negative (Negative); Blood, Urine Negative (Negative); Clarity Clear (Clear); Glucose, Urine (Dipstick) Normal (Negative); Ketone, Urine Negative (Negative); Leukocyte Negative Leu/uL (Negative); Nitrite Negative (Negative); Protein, Urine (Dipstick) Negative (Neg-Trace); Specific Gravity, Urine 1.013 (1.002-1.036); Urobilinogen Normal mg/dL (Less than 2)
[2022-09-13] MEDS ORDERED: Ketorolac Tromethamine 30 MG/ML VIAL ONE (14:07)
[2022-09-13] MEDS ORDERED: Ondansetron PF 4 MG/2 ML Vial ONE (14:07)
== END 2022-09-13 16:58 | disposition home or self-care (01) ==
LOC: ERS 11:48
DX: R10.813 Right lower quadrant abdominal tenderness (principal)
CPT/HCPCS: 36415; 74177; 80053; 81003; 83690; 84703; 85025; 96374; 96375; J1885; J2405; Q9967

== ENCOUNTER 2022-10-13 17:35 | Emergency (ER) | payer BC ==
[2022-10-13] MEDS ORDERED: Sucralfate 1 GM/10 ML UDCUP ONE (18:25)
[2022-10-13] MEDS ORDERED: Lidocaine Viscous Sol 2% 15 ml UD Cup ONE (18:25)
[2022-10-13] MEDS ORDERED: Mag-Al 1200 mg/1200 mg/30 ML UDCUP ONE (18:25)
[2022-10-13 18:37] LABS: #Basophils 0.1 thou/uL (0.0-0.2); #Eosinphils 0.1 thou/uL (0.0-0.7); #Lymphocytes 2.5 thou/uL (1.20-3.40); #Monocytes 0.4 thou/uL (0.11-0.59); #Neutrophils 2.8 thou/uL (1.40-6.50); %Basophils 1.4 % (0.0-1.0); %Eosinophils 0.9 % (0.0-10.0); %Lymphocytes 43.1 % (21.0-51.0); %Monocytes 6.4 % (0.0-10.0); %Neutrophils 48.2 % (42.0-75.0); Hemoglobin 13.4 g/dL (12.0-16.0); Mean Corpuscular HGB CONC 33.2 g/dL (32.0-36.0); Mean Corpuscular Hemoglobin 28.1 pg (27.0-31.0); Mean Corpuscular Volume 84.7 fl (78.0-98.0); Mean Platelet Volume 8.1 fL (7.4-10.4); Platelet Count 270 10x3/uL (130-400); RBC Distribution Width 12.3 % (11.5-14.5); Red Blood Cell (RBC) Count 4.78 mill/uL (4.20-5.40); White Blood Cell (WBC) Count 5.7 10x3/uL (4.8-10.8)
[2022-10-13 18:46] LABS: BHCG - Serum Negative (NEGATIVE); Pregs Control Background? CLEAR/WHITE (CLR/WHITE); Pregs Control Bar Appear? YES (CONTROL BAR)
[2022-10-13] MEDS ORDERED: Fentanyl 100 MCG/2 ML VIAL ONE (18:53)
[2022-10-13 19:00] LABS: ALT (SGPT) 44 U/L (8-55); AST (SGOT) 36 U/L (5-34); Albumin 4.9 g/dL (3.5-5.0); Alkaline Phosphatase 60 U/L (40-110); Anion Gap 15 mmol/L (10-20); BUN (Urea Nitrogen) 20 mg/dL (7.0-18.7); Bilirubin, Total 0.2 mg/dL (0.2-1.2); Calc. Creatinine Clearance 0 mL/min (70-130); Calcium 9.8 mg/dL (7.8-10.44); Carbon Dioxide 20 mmol/L (22-29); Chloride 107 mmol/L (98-107); Estimated GFR 97; Globulin 3.7 g/dL (2.4-3.5); Glucose 86 mg/dL (70-105); Lipase 45 U/L (8-78); Potassium 3.3 mmol/L (3.5-5.1); Protein, Total 8.6 g/dL (6.0-8.3); Sodium 139 mmol/L (136-145)
[2022-10-13] MEDS ORDERED: Ketorolac Tromethamine 30 MG/ML VIAL ONE (19:44)
[2022-10-13] MEDS ORDERED: HYDROcodone/Acetaminophen 10/325 mg Tablet ONE (21:01)
== END 2022-10-13 21:02 | disposition home or self-care (01) ==
LOC: ERS 17:35
DX: R07.9 Chest pain, unspecified (principal)
CPT/HCPCS: 36415; 71045; 80053; 83690; 84484; 84703; 85025; 85379; 93005; 96374; 96375; J1885; J3010

== ENCOUNTER 2023-01-20 12:57 | Inpatient (IN) | payer BC ==
[~2023-01-20 12:57] MED LIST changes: -Iopamidol-370 76% 500 ML 1 ML ONE; +Iopamidol-370 76% 500 ML MDV (1 ML CHARGE) ONE
[2023-01-20] MEDS ORDERED: Morphine 4 MG/ML VIAL ONE ×2 (13:50→15:25)
[2023-01-20] MEDS ORDERED: Ondansetron PF 4 MG/2 ML Vial ONE ×2 (13:50→15:25)
[2023-01-20 13:53] LABS: #Monocytes 0.4 thou/uL (0.11-0.59); %Basophils 0.4 % (0.0-1.0); %Eosinophils 0.8 % (0.0-10.0); %Lymphocytes 30.7 % (21.0-51.0); %Monocytes 8.1 % (0.0-10.0); %Neutrophils 59.6 % (42.0-75.0); Hemoglobin 12.6 g/dL (12.0-16.0); Mean Corpuscular HGB CONC 31.3 g/dL (32.0-36.0); Mean Corpuscular Volume 86.5 fl (78.0-98.0); Mean Platelet Volume 9.8 fL (7.4-10.4); Platelet Count 257 10x3/uL (130-400); Red Blood Cell (RBC) Count 4.66 mill/uL (4.20-5.40); White Blood Cell (WBC) Count 5.1 10x3/uL (4.8-10.8)
[2023-01-20 14:13] LABS: BHCG - Serum Negative (NEGATIVE); Pregs Control Background? CLEAR/WHITE (CLR/WHITE); Pregs Control Bar Appear? YES (CONTROL BAR)
[2023-01-20 14:17] LABS: ALT (SGPT) 19 U/L (8-55); AST (SGOT) 23 U/L (5-34); Albumin 4.6 g/dL (3.5-5.0); Alkaline Phosphatase 60 U/L (40-110); Anion Gap 14 mmol/L (10-20); BUN (Urea Nitrogen) 9 mg/dL (7.0-18.7); Bilirubin, Total 0.2 mg/dL (0.2-1.2); Calc. Creatinine Clearance 0 mL/min (70-130); Calcium 9.8 mg/dL (7.8-10.44); Carbon Dioxide 23 mmol/L (22-29); Chloride 106 mmol/L (98-107); Estimated GFR 93; Globulin 3.4 g/dL (2.4-3.5); Glucose 90 mg/dL (70-105); Lipase 44 U/L (8-78); Potassium 4.3 mmol/L (3.5-5.1); Sodium 139 mmol/L (136-145)
[2023-01-20 15:06] LABS: Bilirubin Negative (Negative); Blood, Urine Negative (Negative); Clarity Clear (Clear); Glucose, Urine (Dipstick) Normal (Negative); Ketone, Urine Negative (Negative); Leukocyte Negative Leu/uL (Negative); Nitrite Negative (Negative); Protein, Urine (Dipstick) 10 mg/dL (Neg-Trace); Specific Gravity, Urine 1.011 (1.002-1.036); Urobilinogen Normal mg/dL (Less than 2); pH, Urine 5.5 (5.0-9.0)
[2023-01-20 15:08] LABS: Pregnancy Test - Urine (BHCG) Negative (Negative); Pregu Control Background? CLEAR/WHITE (CLR/WHITE); Pregu Control Bar Appear? YES (CONTROL BAR); Specific Gravity 1.011 (1.002-1.036)
[2023-01-20] MEDS ORDERED: Promethazine HCl 12.5 MG in Sodium Chloride 0.9% 50 ML IVPB SCH (16:45)
[2023-01-20] MEDS ORDERED: Ketorolac Tromethamine 30 MG/ML VIAL ONE (17:20)
[2023-01-20] MEDS ORDERED: Acetaminophen 325 MG TAB PO PRN (18:45)
[2023-01-20] MEDS ORDERED: Famotidine/PF 20 mg/2ml Vial ONE (19:12)
[2023-01-20] MEDS ORDERED: Fentanyl 100 MCG/2 ML VIAL SLOW IVP PRN (19:22)
[2023-01-20] MEDS ORDERED: Promethazine HCl 12.5 MG in Sodium Chloride 0.9% 50 ML IVPB PRN (19:22)
[2023-01-20 20:26] VITALS: BMI 27.8
[2023-01-20] MEDS: Dextrose 5 %-0.45 % NaCl 1,000 ML IV SCH (20:26)
[2023-01-20] MEDS: Morphine 2 MG/ML VIAL SLOW IVP PRN (20:52)
[2023-01-20] MEDS: fentaNYL 50 mcg/mL 1 mL Vial SLOW IVP PRN (22:25)
[2023-01-21] MEDS: Morphine 2 MG/ML VIAL SLOW IVP PRN ×6 (00:49→23:49)
[2023-01-21] MEDS: Ondansetron PF 4 MG/2 ML Vial IVP PRN ×3 (03:41→23:29)
[2023-01-21] MEDS: fentaNYL 50 mcg/mL 1 mL Vial SLOW IVP PRN ×4 (03:41→22:06)
[2023-01-21] MEDS: Dextrose 5 %-0.45 % NaCl 1,000 ML IV SCH ×2 (05:32→06:32)
[2023-01-21 06:19] LABS: #Eosinphils 0.1 thou/uL (0.0-0.7); #Monocytes 0.4 thou/uL (0.11-0.59); #Neutrophils 4.8 thou/uL (1.40-6.50); %Basophils 0.1 % (0.0-1.0); %Eosinophils 1.1 % (0.0-10.0); %Lymphocytes 26.3 % (21.0-51.0); %Monocytes 5.9 % (0.0-10.0); %Neutrophils 66.3 % (42.0-75.0); Hemoglobin 10.5 g/dL (12.0-16.0); Mean Corpuscular HGB CONC 31.2 g/dL (32.0-36.0); Mean Corpuscular Hemoglobin 26.9 pg (27.0-31.0); Mean Corpuscular Volume 86.2 fl (78.0-98.0); Mean Platelet Volume 9.9 fL (7.4-10.4); Platelet Count 193 10x3/uL (130-400); RBC Distribution Width 12.9 % (11.5-14.5); Red Blood Cell (RBC) Count 3.91 mill/uL (4.20-5.40); White Blood Cell (WBC) Count 7.3 10x3/uL (4.8-10.8)
[2023-01-21 06:41] LABS: ALT (SGPT) 13 U/L (8-55); AST (SGOT) 15 U/L (5-34); Albumin 3.7 g/dL (3.5-5.0); Alkaline Phosphatase 45 U/L (40-110); Anion Gap 8 mmol/L (10-20); BUN (Urea Nitrogen) 5 mg/dL (7.0-18.7); Bilirubin, Total 0.3 mg/dL (0.2-1.2); Calc. Creatinine Clearance 125 mL/min (70-130); Calcium 8.4 mg/dL (7.8-10.44); Carbon Dioxide 23 mmol/L (22-29); Chloride 108 mmol/L (98-107); Estimated GFR 113; Globulin 2.4 g/dL (2.4-3.5); Glucose 93 mg/dL (70-105); Protein, Total 6.1 g/dL (6.0-8.3); Sodium 136 mmol/L (136-145)
[2023-01-21] MEDS: Pantoprazole 40 MG VIAL IVP SCH (08:00)
[2023-01-21] MEDS ORDERED: Potassium Phosphate 30 MMOL in Sodium Chloride 0.9% 250 ML 250 ML IVPB SCH (09:00)
[2023-01-21] MEDS: D5 1/2 NS w/20 mEq KCL 1,000 ML IV SCH ×2 (10:03→18:21)
[2023-01-21 10:41] LABS: Magnesium 1.7 mg/dL (1.6-2.6); Phosphorus 2.9 mg/dL (2.3-4.7)
[2023-01-21] MEDS: HYDROcodone/Acetaminophen 5/325 mg Tablet PO PRN ×2 (14:13→23:48)
[2023-01-21] MEDS ORDERED: Magnesium 2 GM/50 ML(in water) 2 GM in Premix Bag 1 BAG IVPB SCH (18:00)
[2023-01-21] MEDS ORDERED: Electrolyte Replacement Protocol 1 EACH FS SCH (18:00)
[2023-01-21 21:03] LABS: Potassium 3.4 mmol/L (3.5-5.1)
[2023-01-21] MEDS: Potassium Chloride 20 MEQ in Premix Bag 1 BAG IVPB SCH (22:07)
[2023-01-21] MEDS ORDERED: hydrOXYzine 25 MG TAB PO SCH (22:30)
[2023-01-22] MEDS: D5 1/2 NS w/20 mEq KCL 1,000 ML IV SCH ×3 (01:02→19:12)
[2023-01-22] MEDS: Potassium Chloride 20 MEQ in Premix Bag 1 BAG IVPB SCH (01:02)
[2023-01-22] MEDS: fentaNYL 50 mcg/mL 1 mL Vial SLOW IVP PRN ×5 (03:07→23:41)
[2023-01-22] MEDS: Morphine 2 MG/ML VIAL SLOW IVP PRN ×4 (05:19→20:56)
[2023-01-22 06:35] LABS: #Eosinphils 0.2 thou/uL (0.0-0.7); #Monocytes 0.3 thou/uL (0.11-0.59); #Neutrophils 1.6 thou/uL (1.40-6.50); %Basophils 0.5 % (0.0-1.0); %Eosinophils 4.2 % (0.0-10.0); %Lymphocytes 49.1 % (21.0-51.0); %Monocytes 7.6 % (0.0-10.0); %Neutrophils 38.4 % (42.0-75.0); Hemoglobin 11.6 g/dL (12.0-16.0); Mean Corpuscular HGB CONC 31.2 g/dL (32.0-36.0); Mean Corpuscular Hemoglobin 27.5 pg (27.0-31.0); Mean Corpuscular Volume 88.2 fl (78.0-98.0); Mean Platelet Volume 9.4 fL (7.4-10.4); Platelet Count 211 10x3/uL (130-400); Red Blood Cell (RBC) Count 4.22 mill/uL (4.20-5.40); White Blood Cell (WBC) Count 4.1 10x3/uL (4.8-10.8)
[2023-01-22 07:27] LABS: ALT (SGPT) 13 U/L (8-55); AST (SGOT) 18 U/L (5-34); Albumin 4.1 g/dL (3.5-5.0); Alkaline Phosphatase 47 U/L (40-110); Anion Gap 11 mmol/L (10-20); BUN (Urea Nitrogen) Less than 4 mg/dL (7.0-18.7); Bilirubin, Total 0.2 mg/dL (0.2-1.2); Calc. Creatinine Clearance 134 mL/min (70-130); Calcium 8.8 mg/dL (7.8-10.44); Carbon Dioxide 21 mmol/L (22-29); Chloride 109 mmol/L (98-107); Estimated GFR 118; Globulin 2.8 g/dL (2.4-3.5); Glucose 106 mg/dL (70-105); Magnesium 2.4 mg/dL (1.6-2.6); Phosphorus 2.9 mg/dL (2.3-4.7); Protein, Total 6.9 g/dL (6.0-8.3); Sodium 137 mmol/L (136-145)
[2023-01-22] MEDS: Pantoprazole 40 MG VIAL IVP SCH (09:41)
[2023-01-22 11:37] LABS: Campy jejuni + coli by PCR Negative (Negative); STEC Shiga Toxin 1+2 Negative (Negative); Salmonella spp. by PCR Negative (Negative); Shigella spp + EIEC by PCR Negative (Negative)
[2023-01-22] MEDS ORDERED: fentaNYL 50 mcg/mL 1 mL Vial ONE (11:41)
[2023-01-22] MEDS ORDERED: PROPOFOL 200 MG/20 ML VIAL ONE (11:56)
[2023-01-22] MEDS ORDERED: ePHEDrine Sulfate 50 MG/10 ML VIAL ONE (11:56)
[2023-01-22] MEDS ORDERED: Promethazine HCl 25 MG/ML VIAL IM PRN (12:12)
[2023-01-22] MEDS ORDERED: Morphine Sulfate 2 MG/ML SYRINGE SLOW IVP PRN (12:12)
[2023-01-22] MEDS ORDERED: HYDROmorphone 2 MG/ML VIAL SLOW IVP PRN (12:12)
[2023-01-22] MEDS ORDERED: Ondansetron HCl/PF 4 MG/2 ML Vial IVP PRN (12:12)
[2023-01-22] MEDS ORDERED: Meperidine HCl/PF 25 MG/ML VIAL SLOW IVP PRN (12:12)
[2023-01-22] MEDS ORDERED: diphenhydrAMINE 25 MG CAP PO SCH (14:45)
[2023-01-22] MEDS: HYDROcodone/Acetaminophen 5/325 mg Tablet PO PRN (16:55)
[2023-01-22] MEDS: Ondansetron ODT 4 MG TAB PO PRN (16:55)
[2023-01-22] MEDS: traZODone HCl 50 MG TAB PO SCH (20:54)
[2023-01-22] MEDS: Amitriptyline HCl 25 MG TAB PO SCH (20:54)
[2023-01-23] MEDS: D5 1/2 NS w/20 mEq KCL 1,000 ML IV SCH ×4 (01:07→20:41)
[2023-01-23] MEDS: HYDROcodone/Acetaminophen 5/325 mg Tablet PO PRN ×2 (01:11→11:04)
[2023-01-23] MEDS: Morphine 2 MG/ML VIAL SLOW IVP PRN ×4 (03:55→22:28)
[2023-01-23] MEDS: fentaNYL 50 mcg/mL 1 mL Vial SLOW IVP PRN ×3 (08:49→20:34)
[2023-01-23] MEDS: Hydroxychloroquine Sulfate 200 MG TAB PO SCH (08:50)
[2023-01-23] MEDS: Multivit, Therapeutic 1 TAB PO SCH (08:50)
[2023-01-23] MEDS: Pantoprazole 40 MG VIAL IVP SCH (09:00)
[2023-01-23] MEDS ORDERED: GoLYTELY 4,000 ml Bottle PO SCH (09:30)
[2023-01-23] MEDS: Ondansetron ODT 4 MG TAB PO PRN (11:04)
[2023-01-23 13:05] LABS: #Eosinphils 0.3 thou/uL (0.0-0.7); #Monocytes 0.3 thou/uL (0.11-0.59); #Neutrophils 1.9 thou/uL (1.40-6.50); %Basophils 0.5 % (0.0-1.0); %Eosinophils 6.2 % (0.0-10.0); %Lymphocytes 41.9 % (21.0-51.0); %Monocytes 7.1 % (0.0-10.0); %Neutrophils 44.3 % (42.0-75.0); Hemoglobin 11.1 g/dL (12.0-16.0); Mean Corpuscular HGB CONC 31.2 g/dL (32.0-36.0); Mean Corpuscular Hemoglobin 27.6 pg (27.0-31.0); Mean Corpuscular Volume 88.6 fl (78.0-98.0); Mean Platelet Volume 9.5 fL (7.4-10.4); Platelet Count 207 10x3/uL (130-400); RBC Distribution Width 12.9 % (11.5-14.5); Red Blood Cell (RBC) Count 4.02 mill/uL (4.20-5.40); White Blood Cell (WBC) Count 4.2 10x3/uL (4.8-10.8)
[2023-01-23 13:56] LABS: Anion Gap 10 mmol/L (10-20); BUN (Urea Nitrogen) Less than 4 mg/dL (7.0-18.7); Calc. Creatinine Clearance 122 mL/min (70-130); Calcium 8.7 mg/dL (7.8-10.44); Carbon Dioxide 20 mmol/L (22-29); Chloride 111 mmol/L (98-107); Estimated GFR 109; Glucose 103 mg/dL (70-105); Potassium 4.3 mmol/L (3.5-5.1); Sodium 137 mmol/L (136-145)
[2023-01-23] MEDS: Amitriptyline HCl 25 MG TAB PO SCH (20:34)
[2023-01-23] MEDS: traZODone HCl 50 MG TAB PO SCH (20:34)
[2023-01-23] MEDS: Dicyclomine 10 MG CAP PO PRN (22:28)
[2023-01-24] MEDS: fentaNYL 50 mcg/mL 1 mL Vial SLOW IVP PRN ×3 (05:05→15:10)
[2023-01-24] MEDS: D5 1/2 NS w/20 mEq KCL 1,000 ML IV SCH (05:22)
[2023-01-24] MEDS: Pantoprazole 40 MG VIAL IVP SCH (08:35)
[2023-01-24] MEDS: Morphine 2 MG/ML VIAL SLOW IVP PRN ×3 (08:35→20:59)
[2023-01-24] MEDS: Multivit, Therapeutic 1 TAB PO SCH (08:36)
[2023-01-24] MEDS ORDERED: Hydroxychloroquine Sulfate 200 MG TAB PO SCH (09:00)
[2023-01-24] MEDS ORDERED: PHENYLEPHRINE-NS 100 MCG/ML 10 ML SYRINGE ONE (14:10)
[2023-01-24] MEDS ORDERED: PROPOFOL 200 MG/20 ML VIAL ONE (14:10)
[2023-01-24] MEDS ORDERED: fentaNYL 50 mcg/mL 1 mL Vial ONE (14:29)
[2023-01-24] MEDS ORDERED: Morphine 2 MG/ML VIAL ONE (14:38)
[2023-01-24] MEDS: Dicyclomine 10 MG CAP PO PRN (15:10)
[2023-01-24] MEDS: Amitriptyline HCl 25 MG TAB PO SCH (21:02)
[2023-01-24] MEDS: traZODone HCl 50 MG TAB PO SCH (21:02)
[2023-01-25] MEDS: Morphine 2 MG/ML VIAL SLOW IVP PRN ×2 (00:55→05:07)
[2023-01-25] MEDS: D5 1/2 NS w/20 mEq KCL 1,000 ML IV SCH (05:09)
[2023-01-25] MEDS: HYDROcodone/Acetaminophen 5/325 mg Tablet PO PRN (07:35)
[2023-01-25] MEDS: Multivit, Therapeutic 1 TAB PO SCH (07:35)
[2023-01-25] MEDS: Hydroxychloroquine Sulfate 200 MG TAB PO SCH (07:35)
[2023-01-25] MEDS: Pantoprazole 40 MG VIAL IVP SCH (07:36)
[2023-01-25] MEDS: fentaNYL 50 mcg/mL 1 mL Vial SLOW IVP PRN (08:39)
[2023-01-25 08:50] VITALS: BP 106/66; TEMP 98.2
[2023-01-26 13:02] LABS: ANA Symphony (Qualitative) Negative (Negative); ANA Symphony (Quantitative) 0.3 Ratio (< 0.7 Negative); dsDNA IgG Antibody 0.6 IU/mL (<10 Negative)
== END 2023-01-25 10:19 | disposition home or self-care (01) | DRG 392 ==
LOC: ERS 12:57 → T4-B 18:32 → OBSVTOIN 18:32 → T4-A 01-23 16:41
PROVIDERS: ADMIT Internal Medicine; ATTEND Internal Medicine
PROC: 0DJ08ZZ Inspection of Upper Intestinal Tract, Via Natural or Artificial Opening Endoscopic (ICD-10-PCS; principal; 2023-01-22)
PROC: 0DJD8ZZ Inspection of Lower Intestinal Tract, Via Natural or Artificial Opening Endoscopic (ICD-10-PCS; 2023-01-24)
DX: K52.9 Noninfective gastroenteritis and colitis, unspecified (principal); R10.13 Epigastric pain; M35.00 Sjogren syndrome, unspecified; M06.9 Rheumatoid arthritis, unspecified; M32.9 Systemic lupus erythematosus, unspecified; E87.6 Hypokalemia; E83.42 Hypomagnesemia; I10 Essential (primary) hypertension; D63.8 Anemia in other chronic diseases classified elsewhere; Z88.6 Allergy status to analgesic agent; Z90.49 Acquired absence of other specified parts of digestive tract; Z98.890 Other specified postprocedural states; Z88.8 Allergy status to other drugs, medicaments and biological substances; Z79.899 Other long term (current) drug therapy
CPT/HCPCS: 36415; 36416; 74177; 74181; 76705; 80048; 80053; 81003; 81025; 83605; 83630; 83690; 83735; 84100; 84703; 85025; 86038; 86140; 86160; 86225; 87324; 87449; 87505; 96365; 96366; 96374; 96375; 96376; C9113; G0378; J1885; J2270; J2272; J2405; J2550; J2704; J3010; J3475; J3480; J7042; J7050; Q0162; Q9967; S0028

== ENCOUNTER 2023-08-09 16:23 | Emergency (ER) | payer BC ==
[2023-08-09 17:23] LABS: #Monocytes 0.2 thou/uL (0.11-0.59); #Neutrophils 5.8 thou/uL (1.40-6.50); %Basophils 0.3 % (0.0-1.0); %Monocytes 2.6 % (0.0-10.0); %Neutrophils 84.8 % (42.0-75.0); Hematocrit 40.5 % (36.0-47.0); Hemoglobin 12.8 g/dL (12.0-16.0); Mean Corpuscular HGB CONC 31.6 g/dL (32.0-36.0); Mean Corpuscular Hemoglobin 25.9 pg (27.0-31.0); Platelet Count 307 10x3/uL (130-400); RBC Distribution Width 14.2 % (11.5-14.5); Red Blood Cell (RBC) Count 4.94 mill/uL (4.20-5.40); White Blood Cell (WBC) Count 6.9 10x3/uL (4.8-10.8)
[2023-08-09] MEDS ORDERED: Morphine 10 MG/ML VIAL ONE (17:47)
[2023-08-09] MEDS ORDERED: Ondansetron PF 4 MG/2 ML Vial ONE (17:47)
[2023-08-09 17:51] LABS: Troponin I Less than 0.010 ng/mL (< 0.028)
[2023-08-09 17:58] LABS: ALT (SGPT) 15 U/L (8-55); AST (SGOT) 23 U/L (5-34); Albumin 5.2 g/dL (3.5-5.0); Alkaline Phosphatase 57 U/L (40-110); Anion Gap 18 mmol/L (10-20); BUN (Urea Nitrogen) 10 mg/dL (7.0-18.7); Bilirubin, Total 0.4 mg/dL (0.2-1.2); Calc. Creatinine Clearance 0 mL/min (70-130); Calcium 10.4 mg/dL (7.8-10.44); Carbon Dioxide 23 mmol/L (22-29); Chloride 102 mmol/L (98-107); Estimated GFR 104; Globulin 4.1 g/dL (2.4-3.5); Glucose 99 mg/dL (70-105); Lipase 34 U/L (8-78); Magnesium 2.8 mg/dL (1.6-2.6); Potassium 4.1 mmol/L (3.5-5.1); Protein, Total 9.3 g/dL (6.0-8.3); Sodium 139 mmol/L (136-145)
[2023-08-09 18:20] LABS: Bacteria/HPF None Seen HPF (None Seen); Bilirubin Negative (Negative); Blood, Urine 2+ (Negative); CAUTI Indications for Culture Dysuria,urgency,freq; Clarity Clear (Clear); Glucose, Urine (Dipstick) Normal (Negative); Ketone, Urine Trace mg/dL (Negative); Leukocyte Negative Leu/uL (Negative); Nitrite Negative (Negative); Protein, Urine (Dipstick) Negative (Neg-Trace); RBC/HPF None Seen HPF (0-3); Specific Gravity, Urine 1.015 (1.002-1.036); Squamous Epithelial 0-3 HPF (0-3); Urobilinogen Normal mg/dL (Less than 2); WBC/HPF 0-3 HPF (0-3); pH, Urine 5.5 (5.0-9.0)
[2023-08-09 18:25] LABS: Urine Culture Reflex No No
[2023-08-09 18:27] LABS: Pregnancy Test - Urine (BHCG) Negative (Negative); Pregu Control Background? CLEAR/WHITE (CLR/WHITE); Pregu Control Bar Appear? YES (CONTROL BAR); Specific Gravity 1.015 (1.002-1.036)
[2023-08-09 18:49] LABS: Prothrombin Time 13.8 sec (12.0-14.7)
[2023-08-09] MEDS ORDERED: HYDROmorphone 0.5 MG/0.5 ML SYRINGE ONE (20:01)
== END 2023-08-09 21:16 | disposition home or self-care (01) ==
LOC: ERS 16:23
DX: N93.9 Abnormal uterine and vaginal bleeding, unspecified (principal); R06.02 Shortness of breath; Z79.899 Other long term (current) drug therapy
CPT/HCPCS: 36415; 71275; 74177; 80053; 81001; 81025; 83690; 83735; 84443; 84484; 85025; 85610; 85730; 86850; 86900; 86901; 93005; 96361; 96372; 96374; 96375; J1170; J2270; J2405

== ENCOUNTER 2023-09-30 11:12 | Emergency (ER) | payer BC ==
[2023-09-30 12:57] LABS: #Eosinphils 0.1 thou/uL (0.0-0.7); #Monocytes 0.5 thou/uL (0.11-0.59); #Neutrophils 5.4 thou/uL (1.40-6.50); %Basophils 0.3 % (0.0-1.0); %Lymphocytes 21.3 % (21.0-51.0); %Monocytes 6.3 % (0.0-10.0); %Neutrophils 70.8 % (42.0-75.0); Hematocrit 38.2 % (36.0-47.0); Hemoglobin 12.7 g/dL (12.0-16.0); Mean Corpuscular HGB CONC 33.2 g/dL (32.0-36.0); Mean Corpuscular Hemoglobin 26.7 pg (27.0-31.0); Mean Corpuscular Volume 80.4 fl (78.0-98.0); Mean Platelet Volume 9.3 fL (7.4-10.4); Platelet Count 278 10x3/uL (130-400); RBC Distribution Width 14.2 % (11.5-14.5); Red Blood Cell (RBC) Count 4.75 mill/uL (4.20-5.40); White Blood Cell (WBC) Count 7.6 10x3/uL (4.8-10.8)
[2023-09-30 13:10] LABS: BHCG - Serum Negative (NEGATIVE); Pregs Control Background? CLEAR/WHITE (CLR/WHITE); Pregs Control Bar Appear? YES (CONTROL BAR)
[2023-09-30] MEDS ORDERED: Ketorolac Tromethamine 30 MG (1 mL) VIAL ONE (13:19)
[2023-09-30 13:20] LABS: ALT (SGPT) 16 U/L (8-55); AST (SGOT) 20 U/L (5-34); Albumin 4.6 g/dL (3.5-5.0); Alkaline Phosphatase 61 U/L (40-110); Anion Gap 11 mmol/L (10-20); BUN (Urea Nitrogen) 14 mg/dL (7.0-18.7); Bilirubin, Total 0.4 mg/dL (0.2-1.2); Calc. Creatinine Clearance 0 mL/min (70-130); Calcium 9.4 mg/dL (7.8-10.44); Carbon Dioxide 25 mmol/L (22-29); Chloride 104 mmol/L (98-107); Estimated GFR 111; Globulin 3.1 g/dL (2.4-3.5); Glucose 89 mg/dL (70-105); Potassium 3.5 mmol/L (3.5-5.1); Protein, Total 7.7 g/dL (6.0-8.3); Sodium 136 mmol/L (136-145)
[2023-09-30] MEDS ORDERED: Metoclopramide HCl 10 MG (2 mL) VIAL ONE (14:17)
[2023-09-30] MEDS ORDERED: diphenhydrAMINE 50 MG/ML VIAL ONE (14:17)
== END 2023-09-30 16:14 | disposition home or self-care (01) ==
LOC: ERS 11:12
DX: G43.909 Migraine, unspecified, not intractable, without status migrainosus (principal)
CPT/HCPCS: 36415; 70450; 80053; 84703; 85025; 96365; 96375; J1200; J1885; J2765

== ENCOUNTER 2023-11-16 15:39 | Inpatient (IN) | payer BC ==
[2023-11-16 16:17] LABS: Bilirubin Negative (Negative); Blood, Urine Negative (Negative); CAUTI Indications for Culture Dysuria,urgency,freq; Clarity Turbid (Clear); Glucose, Urine (Dipstick) Normal (Negative); Ketone, Urine Negative (Negative); Leukocyte Negative Leu/uL (Negative); Nitrite Negative (Negative); Protein, Urine (Dipstick) Negative (Neg-Trace); RBC/HPF 0-3 HPF (0-3); Specific Gravity, Urine 1.009 (1.002-1.036); Squamous Epithelial 21-50 HPF (0-3); Urobilinogen Normal mg/dL (Less than 2); WBC/HPF 0-3 HPF (0-3); pH, Urine 5.5 (5.0-9.0)
[2023-11-16 16:21] LABS: Bacteria/HPF 1+ HPF (None Seen)
[2023-11-16 16:22] LABS: Urine Culture Reflex No No
[2023-11-16 16:24] LABS: Pregnancy Test - Urine (BHCG) Negative (Negative)
[2023-11-16 16:25] LABS: Pregu Control Background? CLEAR/WHITE (CLR/WHITE); Pregu Control Bar Appear? YES (CONTROL BAR); Specific Gravity 1.009 (1.002-1.036)
[2023-11-16 16:30] LABS: #Eosinphils 0.1 thou/uL (0.0-0.7); #Monocytes 0.5 thou/uL (0.11-0.59); #Neutrophils 3.4 thou/uL (1.40-6.50); %Basophils 0.5 % (0.0-1.0); %Eosinophils 1.9 % (0.0-10.0); %Lymphocytes 31.7 % (21.0-51.0); %Monocytes 7.8 % (0.0-10.0); %Neutrophils 57.9 % (42.0-75.0); Hematocrit 39.1 % (36.0-47.0); Hemoglobin 12.3 g/dL (12.0-16.0); Mean Corpuscular HGB CONC 31.5 g/dL (32.0-36.0); Mean Corpuscular Hemoglobin 26.2 pg (27.0-31.0); Mean Corpuscular Volume 83.4 fl (78.0-98.0); Platelet Count 260 10x3/uL (130-400); RBC Distribution Width 13.6 % (11.5-14.5); Red Blood Cell (RBC) Count 4.69 mill/uL (4.20-5.40); White Blood Cell (WBC) Count 5.8 10x3/uL (4.8-10.8)
[2023-11-16 16:45] LABS: ALT (SGPT) 12 U/L (8-55); AST (SGOT) 18 U/L (5-34); Albumin 4.7 g/dL (3.5-5.0); Alkaline Phosphatase 62 U/L (40-110); Anion Gap 12 mmol/L (10-20); BUN (Urea Nitrogen) 10 mg/dL (7.0-18.7); Bilirubin, Total 0.3 mg/dL (0.2-1.2); Calc. Creatinine Clearance 0 mL/min (70-130); Calcium 9.8 mg/dL (7.8-10.44); Carbon Dioxide 25 mmol/L (22-29); Chloride 106 mmol/L (98-107); Estimated GFR 96; Globulin 2.9 g/dL (2.4-3.5); Glucose 102 mg/dL (70-105); Potassium 4.4 mmol/L (3.5-5.1); Protein, Total 7.6 g/dL (6.0-8.3); Sodium 139 mmol/L (136-145)
[2023-11-16] MEDS ORDERED: Morphine 4 MG/ML VIAL ONE ×2 (19:24→21:24)
[2023-11-16] MEDS ORDERED: Ondansetron PF 4 MG/2 ML Vial ONE ×2 (19:24→21:24)
[2023-11-16 20:34] LABS: Bacteria/HPF None Seen HPF (None Seen); Bilirubin Negative (Negative); Blood, Urine Negative (Negative); CAUTI Indications for Culture Dysuria,urgency,freq; Clarity Clear (Clear); Glucose, Urine (Dipstick) Normal (Negative); Ketone, Urine Negative (Negative); Leukocyte Negative Leu/uL (Negative); Nitrite Negative (Negative); Protein, Urine (Dipstick) Negative (Neg-Trace); RBC/HPF 0-3 HPF (0-3); Specific Gravity, Urine 1.014 (1.002-1.036); Squamous Epithelial 0-3 HPF (0-3); Urine Culture Reflex No No; Urobilinogen Normal mg/dL (Less than 2); WBC/HPF 0-3 HPF (0-3)
[2023-11-16] MEDS ORDERED: Dicyclomine 20 MG/2 ML VIAL ONE (22:12)
[2023-11-17] MEDS ORDERED: Pantoprazole 40 MG VIAL ONE (00:32)
[2023-11-17] MEDS ORDERED: LORazepam 2 MG/ML SYR.(CARPUJECT) ONE (00:32)
[2023-11-17] MEDS ORDERED: Acetaminophen 325 MG TAB PO PRN (00:58)
[2023-11-17 01:54] LABS: Amphetamine Not Detected (NotDetected); Barbiturates Screen Not Detected (NotDetected); Benzodiazepine Screen Not Detected (NotDetected); Cocaine Metabolite Screen Not Detected (NotDetected); Methadone Not Detected (NotDetected); Methamphetamine Not Detected (NotDetected); Opiate Screen Not Detected (NotDetected); Oxycodone Screen Not Detected (NotDetected); Phencyclidine (PCP) Not Detected (NotDetected); THC/Cannabinoid Screen Detected (NotDetected); Tricyclic Screen Not Detected (NotDetected)
[2023-11-17] MEDS: Mineral Oil ENEMA PR SCH (03:11)
[2023-11-17 03:13] VITALS: BMI 27.3
[2023-11-17] MEDS ORDERED: Sodium Chloride 0.9% 1,000 ML IV SCH (03:30)
[2023-11-17] MEDS ORDERED: Morphine 2 MG/ML VIAL SLOW IVP SCH (03:30)
[2023-11-17] MEDS: Lactated Ringer's 1,000 ML IV SCH (03:35)
[2023-11-17] MEDS: fentaNYL 50 mcg/mL 1 mL Vial SLOW IVP SCH (03:54)
[2023-11-17] MEDS ORDERED: Ondansetron PF 4 MG/2 ML Vial IVP PRN (04:00)
[2023-11-17] MEDS: Polyethylene Glycol 3350 17 GM Packet PO SCH (08:16)
[2023-11-17] MEDS: Senokot S 8.6-50 MG TAB PO SCH (08:17)
[2023-11-17 09:37] LABS: Anion Gap 12 mmol/L (10-20); BUN (Urea Nitrogen) 6 mg/dL (7.0-18.7); Calc. Creatinine Clearance 121 mL/min (70-130); Calcium 8.8 mg/dL (7.8-10.44); Carbon Dioxide 23 mmol/L (22-29); Chloride 107 mmol/L (98-107); Estimated GFR 112; Glucose 95 mg/dL (70-105); Potassium 3.6 mmol/L (3.5-5.1); Sodium 138 mmol/L (136-145)
[2023-11-17 10:27] LABS: #Eosinphils 0.1 thou/uL (0.0-0.7); #Monocytes 0.4 thou/uL (0.11-0.59); #Neutrophils 3.2 thou/uL (1.40-6.50); %Basophils 0.2 % (0.0-1.0); %Eosinophils 1.6 % (0.0-10.0); %Monocytes 7.6 % (0.0-10.0); %Neutrophils 63.4 % (42.0-75.0); Hematocrit 33.5 % (36.0-47.0); Hemoglobin 10.6 g/dL (12.0-16.0); Mean Corpuscular HGB CONC 31.6 g/dL (32.0-36.0); Mean Corpuscular Hemoglobin 26.5 pg (27.0-31.0); Mean Corpuscular Volume 83.8 fl (78.0-98.0); Mean Platelet Volume 9.6 fL (7.4-10.4); Platelet Count 189 10x3/uL (130-400); RBC Distribution Width 13.6 % (11.5-14.5)
[2023-11-17 12:00] VITALS: BP 104/68; TEMP 98.1
[2023-11-17] MEDS: Promethazine HCl 25 MG in Sodium Chloride 0.9% 50 ML IVPB SCH (13:50)
[2023-11-17] MEDS: Ketorolac Tromethamine 30 MG (1 mL) VIAL IVP SCH (13:59)
[2023-11-17] MEDS: Dicyclomine 10 MG CAP PO PRN (14:00)
[2023-11-18] MEDS ORDERED: Pantoprazole 40 MG VIAL IVP SCH (09:00)
== END 2023-11-17 15:05 | disposition left against medical advice (07) | DRG 379 ==
LOC: ERS 15:39 → INTOOBSV 11-17 00:48 → T4-B 11-17 00:48 → OBSVTOIN 11-17 13:58
PROVIDERS: ADMIT Internal Medicine; ATTEND Internal Medicine
DX: K92.1 Melena (principal); K59.00 Constipation, unspecified; M06.9 Rheumatoid arthritis, unspecified; Z91.041 Radiographic dye allergy status; Z79.899 Other long term (current) drug therapy; Z98.890 Other specified postprocedural states; Z90.49 Acquired absence of other specified parts of digestive tract; Z88.8 Allergy status to other drugs, medicaments and biological substances
CPT/HCPCS: 36415; 74177; 80048; 80053; 80306; 81001; 81025; 83605; 83690; 83735; 84100; 85025; 86850; 86900; 86901; 87086; 96361; 96365; 96372; 96375; 96376; C9113; G0378; J1885; J2060; J2270; J2405; J2550; J3010; J7120; Q9967

== ENCOUNTER 2024-02-14 16:43 | Emergency (ER) | payer BC ==
[2024-02-14] MEDS ORDERED: Morphine 4 MG/ML VIAL ONE ×2 (17:38→19:36)
[2024-02-14] MEDS ORDERED: Ondansetron PF 4 MG/2 ML Vial ONE ×2 (17:38→21:35)
[2024-02-14 18:07] LABS: #Basophils Less than 0.03 10x3/uL (0.0-0.2); %Basophils 0.4 % (0.0-1.0); %Eosinophils 1.3 % (0.0-10.0); %Lymphocytes 33.3 % (21.0-51.0); %Monocytes 7.1 % (0.0-10.0); %Neutrophils 57.7 % (42.0-75.0); Hematocrit 29.5 % (36.0-47.0); Hemoglobin 9.6 g/dL (12.0-16.0); Mean Corpuscular HGB CONC 32.5 g/dL (32.0-36.0); Mean Corpuscular Hemoglobin 26.6 pg (27.0-31.0); Mean Corpuscular Volume 81.7 fL (78.0-98.0); Platelet Count 236 10x3/uL (130-400); RBC Distribution Width 14.7 % (11.5-14.5); Red Blood Cell (RBC) Count 3.61 mill/uL (4.20-5.40)
[2024-02-14 18:18] LABS: Bacteria/HPF None Seen HPF (None Seen); Bilirubin Negative (Negative); Blood, Urine Trace (Negative); CAUTI Indications for Culture Pelvic or flank pain; Clarity Clear (Clear); Glucose, Urine (Dipstick) Normal (Negative); Ketone, Urine Negative (Negative); Leukocyte Negative Leu/uL (Negative); Nitrite Negative (Negative); Protein, Urine (Dipstick) Negative (Neg-Trace); RBC/HPF 0-3 HPF (0-3); Specific Gravity, Urine 1.013 (1.002-1.036); Squamous Epithelial 0-3 HPF (0-3); Urobilinogen Normal mg/dL (Less than 2); WBC/HPF 0-3 HPF (0-3); pH, Urine 7.5 (5.0-9.0)
[2024-02-14 18:20] LABS: Urine Culture Reflex No No
[2024-02-14 18:22] LABS: BHCG - Serum Negative (NEGATIVE); Pregs Control Background? CLEAR/WHITE (CLR/WHITE); Pregs Control Bar Appear? YES (CONTROL BAR)
[2024-02-14 18:29] LABS: ALT (SGPT) 9 U/L (8-55); AST (SGOT) 21 U/L (5-34); Albumin 4.1 g/dL (3.5-5.0); Alkaline Phosphatase 55 U/L (40-110); Anion Gap 12 mmol/L (10-20); BUN (Urea Nitrogen) 6 mg/dL (7.0-18.7); Bilirubin, Total 0.2 mg/dL (0.2-1.2); Calc. Creatinine Clearance 0 mL/min (70-130); Calcium 9.4 mg/dL (7.8-10.44); Carbon Dioxide 23 mmol/L (22-29); Chloride 109 mmol/L (98-107); Estimated GFR 109; Globulin 3.2 g/dL (2.4-3.5); Glucose 91 mg/dL (70-105); Magnesium 1.9 mg/dL (1.6-2.6); Potassium 3.4 mmol/L (3.5-5.1); Protein, Total 7.3 g/dL (6.0-8.3); Sodium 141 mmol/L (136-145)
[2024-02-14 18:35] LABS: Troponin I Less than 0.010 ng/mL (< 0.028)
[2024-02-14 20:58] LABS: Influenza A by NAA Not Detected (NotDetected); Influenza B by NAA Not Detected (NotDetected); SARS-CoV-2 NAA Rapid Test Not Detected (NotDetected)
[2024-02-14] MEDS ORDERED: diphenhydrAMINE 50 MG/ML VIAL ONE (21:02)
[2024-02-14] MEDS ORDERED: Dexamethasone 10 MG/ML VIAL ONE (21:35)
== END 2024-02-14 21:49 | disposition home or self-care (01) ==
LOC: ERS 16:43
DX: R11.10 Vomiting, unspecified (principal); M06.9 Rheumatoid arthritis, unspecified; M35.00 Sjogren syndrome, unspecified; K59.9 Functional intestinal disorder, unspecified; Z55.6 Problems related to health literacy
CPT/HCPCS: 36415; 71045; 74177; 80053; 81001; 83605; 83735; 84484; 84703; 85025; 93005; 96361; 96374; 96375; 96376; J1100; J1200; J2270; J2405

== ENCOUNTER 2024-03-16 12:24 | Emergency (ER) | payer BC ==
[2024-03-16] MEDS ORDERED: Ondansetron PF 4 MG/2 ML Vial ONE (15:11)
[2024-03-16 15:19] LABS: Bacteria/HPF None Seen HPF (None Seen); Bilirubin Negative (Negative); Blood, Urine Negative (Negative); CAUTI Indications for Culture Pelvic or flank pain; Clarity Clear (Clear); Glucose, Urine (Dipstick) Normal (Negative); Ketone, Urine 20 mg/dL (Negative); Leukocyte Negative Leu/uL (Negative); Nitrite Negative (Negative); Pregnancy Test - Urine (BHCG) Negative (Negative); Pregu Control Background? CLEAR/WHITE (CLR/WHITE); Pregu Control Bar Appear? YES (CONTROL BAR); Protein, Urine (Dipstick) 30 mg/dL (Neg-Trace); RBC/HPF 0-3 HPF (0-3); Squamous Epithelial 0-3 HPF (0-3); Urobilinogen Normal mg/dL (Less than 2); WBC/HPF 0-3 HPF (0-3); pH, Urine 5.5 (5.0-9.0)
[2024-03-16 15:20] LABS: Urine Culture Reflex No No
[2024-03-16 15:37] LABS: #Basophils Less than 0.03 10x3/uL (0.0-0.2); %Basophils 0.4 % (0.0-1.0); %Eosinophils 0.6 % (0.0-10.0); %Lymphocytes 34.6 % (21.0-51.0); %Monocytes 7.2 % (0.0-10.0); Hematocrit 39.7 % (36.0-47.0); Hemoglobin 13.1 g/dL (12.0-16.0); Mean Corpuscular Hemoglobin 26.8 pg (27.0-31.0); Mean Corpuscular Volume 81.2 fL (78.0-98.0); Mean Platelet Volume 9.5 fL (7.4-10.4); Platelet Count 258 10x3/uL (130-400); RBC Distribution Width 14.6 % (11.5-14.5); Red Blood Cell (RBC) Count 4.89 mill/uL (4.20-5.40)
[2024-03-16 15:49] LABS: BHCG - Serum Negative (NEGATIVE); Pregs Control Background? CLEAR/WHITE (CLR/WHITE); Pregs Control Bar Appear? YES (CONTROL BAR)
[2024-03-16] MEDS ORDERED: Iopamidol-370 76% 500 ML MDV (1 ML CHARGE) ONE (15:53)
[2024-03-16] MEDS ORDERED: Ketorolac Tromethamine 30 MG (1 mL) VIAL ONE (15:54)
[2024-03-16 15:56] LABS: ALT (SGPT) 12 U/L (8-55); AST (SGOT) 21 U/L (5-34); Albumin 4.7 g/dL (3.5-5.0); Alkaline Phosphatase 56 U/L (40-110); Anion Gap 14 mmol/L (10-20); BUN (Urea Nitrogen) 10 mg/dL (7.0-18.7); Bilirubin, Total 0.5 mg/dL (0.2-1.2); CK (CPK) 77 U/L (29-168); Calc. Creatinine Clearance 0 mL/min (70-130); Carbon Dioxide 25 mmol/L (22-29); Chloride 105 mmol/L (98-107); Estimated GFR 111; Globulin 3.5 g/dL (2.4-3.5); Glucose 89 mg/dL (70-105); Potassium 3.7 mmol/L (3.5-5.1); Protein, Total 8.2 g/dL (6.0-8.3); Sodium 140 mmol/L (136-145)
[2024-03-16] MEDS ORDERED: methylPREDNISolone Sod Succ/PF 125 MG/2 ML VIAL ONE (16:23)
[2024-03-16] MEDS ORDERED: Morphine 4 MG/ML VIAL ONE (16:23)
== END 2024-03-16 17:42 | disposition home or self-care (01) ==
LOC: ERS 12:24
DX: R11.2 Nausea with vomiting, unspecified (principal); R10.9 Unspecified abdominal pain
CPT/HCPCS: 74177; 80053; 81001; 81025; 82550; 84703; 85025; 96361; 96374; 96375; J1885; J2270; J2405; J2930; Q9967

== ENCOUNTER 2024-06-09 18:22 | Emergency (ER) | payer BC ==
[2024-06-09 19:18] LABS: #Basophils Less than 0.03 10x3/uL (0.0-0.2); %Basophils 0.3 % (0.0-1.0); %Eosinophils 0.8 % (0.0-10.0); %Lymphocytes 29.2 % (21.0-51.0); %Neutrophils 63.5 % (42.0-75.0); Hematocrit 39.2 % (36.0-47.0); Hemoglobin 12.7 g/dL (12.0-16.0); Mean Corpuscular HGB CONC 32.4 g/dL (32.0-36.0); Mean Corpuscular Hemoglobin 27.4 pg (27.0-31.0); Mean Corpuscular Volume 84.5 fL (78.0-98.0); Mean Platelet Volume 9.4 fL (7.4-10.4); Platelet Count 279 10x3/uL (130-400); Red Blood Cell (RBC) Count 4.64 mill/uL (4.20-5.40)
[2024-06-09 19:39] LABS: ALT (SGPT) 18 U/L (8-55); AST (SGOT) 22 U/L (5-34); Albumin 4.3 g/dL (3.5-5.0); Alkaline Phosphatase 55 U/L (40-110); Anion Gap 12 mmol/L (10-20); BUN (Urea Nitrogen) 8 mg/dL (7.0-18.7); Bilirubin, Total 0.3 mg/dL (0.2-1.2); Calc. Creatinine Clearance 0 mL/min (70-130); Calcium 9.8 mg/dL (7.8-10.44); Carbon Dioxide 23 mmol/L (22-29); Chloride 109 mmol/L (98-107); Estimated GFR 109; Globulin 3.1 g/dL (2.4-3.5); Glucose 101 mg/dL (70-105); Potassium 3.6 mmol/L (3.5-5.1); Protein, Total 7.4 g/dL (6.0-8.3); Sodium 140 mmol/L (136-145)
[2024-06-09 19:40] LABS: Troponin I Less than 0.010 ng/mL (< 0.028)
== END 2024-06-09 21:59 | disposition home or self-care (01) ==
LOC: ERS 18:22
DX: O02.81 Inappropriate change in quantitative human chorionic gonadotropin (hCG) in early pregnancy (principal); Z3A.01 Less than 8 weeks gestation of pregnancy
CPT/HCPCS: 36415; 76856; 80053; 84484; 84702; 85025; 93005

== ENCOUNTER 2024-07-09 15:19 | Emergency (ER) | payer BC ==
[2024-07-09 16:32] LABS: #Basophils Less than 0.03 10x3/uL (0.0-0.2); %Basophils 0.2 % (0.0-1.0); %Eosinophils 1.5 % (0.0-10.0); %Lymphocytes 34.1 % (21.0-51.0); %Monocytes 7.1 % (0.0-10.0); %Neutrophils 56.8 % (42.0-75.0); Hematocrit 39.2 % (36.0-47.0); Hemoglobin 12.5 g/dL (12.0-16.0); Mean Corpuscular HGB CONC 31.9 g/dL (32.0-36.0); Mean Corpuscular Hemoglobin 27.4 pg (27.0-31.0); Mean Corpuscular Volume 85.8 fL (78.0-98.0); Mean Platelet Volume 9.8 fL (7.4-10.4); Platelet Count 269 10x3/uL (130-400); RBC Distribution Width 13.2 % (11.5-14.5); Red Blood Cell (RBC) Count 4.57 mill/uL (4.20-5.40)
[2024-07-09 16:51] LABS: BHCG - Serum Negative (NEGATIVE); Pregs Control Background? CLEAR/WHITE (CLR/WHITE); Pregs Control Bar Appear? YES (CONTROL BAR)
[2024-07-09 16:59] LABS: ALT (SGPT) 11 U/L (8-55); AST (SGOT) 17 U/L (5-34); Albumin 4.4 g/dL (3.5-5.0); Alkaline Phosphatase 54 U/L (40-110); Anion Gap 13 mmol/L (10-20); BUN (Urea Nitrogen) 7 mg/dL (7.0-18.7); Bilirubin, Total 0.3 mg/dL (0.2-1.2); Calc. Creatinine Clearance 0 mL/min (70-130); Calcium 9.6 mg/dL (7.8-10.44); Carbon Dioxide 23 mmol/L (22-29); Chloride 106 mmol/L (98-107); Estimated GFR 111; Globulin 3.6 g/dL (2.4-3.5); Glucose 90 mg/dL (70-105); Potassium 3.5 mmol/L (3.5-5.1); Sodium 138 mmol/L (136-145)
[2024-07-09 17:00] LABS: Troponin I Less than 0.010 ng/mL (< 0.028)
[2024-07-09] MEDS ORDERED: Dexamethasone 10 MG/ML VIAL ONE (18:57)
[2024-07-09] MEDS ORDERED: Ketorolac Tromethamine 30 MG (1 mL) VIAL ONE (18:57)
[2024-07-09] MEDS ORDERED: Ondansetron PF 4 MG/2 ML Vial ONE (18:58)
[2024-07-09 19:22] LABS: Bacteria/HPF None Seen HPF (None Seen); Bilirubin Negative (Negative); Blood, Urine Negative (Negative); CAUTI Indications for Culture Pelvic or flank pain; Clarity Clear (Clear); Glucose, Urine (Dipstick) Normal (Negative); Ketone, Urine Negative (Negative); Leukocyte Negative Leu/uL (Negative); Nitrite Negative (Negative); Protein, Urine (Dipstick) Negative (Neg-Trace); RBC/HPF 0-3 HPF (0-3); Specific Gravity, Urine 1.007 (1.002-1.036); Squamous Epithelial 0-3 HPF (0-3); Urobilinogen Normal mg/dL (Less than 2); WBC/HPF 0-3 HPF (0-3); pH, Urine 5.5 (5.0-9.0)
[2024-07-09 19:26] LABS: Urine Culture Reflex No No
[2024-07-09] MEDS ORDERED: Morphine 4 MG/ML VIAL ONE (20:48)
== END 2024-07-09 21:25 | disposition home or self-care (01) ==
LOC: ERS 15:19
DX: M25.50 Pain in unspecified joint (principal); R51.9 Headache, unspecified
CPT/HCPCS: 36415; 71045; 80053; 81001; 84484; 84703; 85025; 86141; 93005; 96374; 96375; J1100; J1885; J2272; J2405